=== PATIENT | male | born 1990 | race Caucasian/White ===

== ENCOUNTER 2016-09-27 20:04 | Emergency (ER) | payer MEDICAID, OTHER ==
[~2016-09-27] VITALS: Ht 170.2 cm; Wt 57.0 kg
[2016-09-27 20:18] VITALS: Ht 170.2 cm; Wt 57.0 kg
[2016-09-27] MEDS ORDERED: LIDOCAINE 1%/EPI 30 ML INJ INJ STA (21:32)
[2016-09-27] MEDS ORDERED: CLINDAMYCIN 300 MG INJ IM STA (21:32)
[2016-09-27] MEDS ORDERED: LIDOCAINE 2% (MDV) 20 ML INJ INJ STA (21:38)
[2016-09-27] MEDS ORDERED: ACET325T33 PO (22:43)
[2016-09-27] MEDS ORDERED: CLIN-73 PO (22:43)
[2016-09-27 22:58] VITALS: BP 110/64; PULSE 74; RESP 20; TEMP 99.4
--- NOTE | 2016-09-27 23:06 | ERD ---
ER Documentation Chief Complaint Date/Time DATE: 09/27/16 TIME: 22:49 Chief Complaint abscess/swelling anterior neck x 6 days HPI This is a 26-year-old male presenting to the emergency department complaining of an abscess on the right cervical neck that started 6 days ago. Patient states he has lesions throughout his body but he is noted 6 days ago and went to see a underwriting technician on Sunday at [facility] who has given him Bactrim DS, patient states that he is 2 days on the medication and the abscess on his right anterior neck has enlargement. Patient rates the pain around moderate in severity. He denies any fevers. He denies taking any medications for this. ROS All systems reviewed and are negative except as per history of present illness. Medications Home Meds Active Scripts Acetaminophen* (Tylenol*) 325 Mg Tablet, 2 TAB PO Q6 Y for PAIN AND OR ELEVATED TEMP, #30 TAB Prov:TWIN BARAHONA PA-C 09/27/16 Clindamycin Hcl* (Clindamycin Hcl*) 300 Mg Capsule, 300 MG PO TID for 10 Days, CAP Prov:TWIN BARAHONA PA-C 09/27/16 Allergies Allergies: Coded Allergies: No Known Drug Allergies (Verified Allergy, Unknown, 09/27/16) PMhx/Soc History of Surgery: No Anesthesia Reaction: No Hx Neurological Disorder: No Hx Respiratory Disorders: No Hx Cardiac Disorders: No Hx Psychiatric Problems: No Hx Miscellaneous Medical Probl: No Hx Alcohol Use: No Hx Substance Use: No Hx Tobacco Use: Yes Smoking Status: Light tobacco smoker Physical Exam Vitals Vital Signs Date Time Temp Pulse Resp B/P Pulse Ox O2 Delivery O2 Flow Rate FiO2 09/27/16 20:18 98.6 80 20 136/70 99 Physical Exam General: WD/WN, in no apparent distress, non-toxic appearing HENT: NC/AT Eyes: Conjunctiva normal Neck: Supple Pulm: Clear to auscultation, normal labored breathing; no wheezing/rales/ rhonchi heard CV: Good capillary refill GI: Non-distended, no guarding Back: No masses Ext: No clubbing, cyanosis, or edema Neuro: Moves on all fours Skin: ~[id number] erythematous fluctuate papule on right anterior neck Psych: Normal mood Results 24 hrs Current Medications Medications (Trade) Dose Ordered Sig/Mani Route PRN Reason Start Time Stop Time Status Last Admin Dose Admin Lidocaine/ Epinephrine (Xylocaine 1%/ Epi) 30 ml ONCE STAT INJ 09/27/16 21:32 09/27/16 21:33 DC Clindamycin Phosphate (Cleocin) 300 mg ONCE STAT IM 09/27/16 21:32 09/27/16 21:33 DC 09/27/16 22:00 Lidocaine (Xylocaine 2% (Mdv) 20 ml) 20 ml ONCE STAT INJ 09/27/16 21:38 09/27/16 21:39 DC Procedures/MDM This is a 26-year-old male presenting to the emergency department with a ~5cm x 5cm fluctuant abscess on the right anterior neck for 6 days. On examination patient's vital signs are stable, he is afebrile and airways are intact. There was no evidence of deep space infection, lymphangitis, necrotizing fasciitis. Abscess was drained, procedure below. Since patient has been on Bactrim DS for two days and his abscess has enlarged, I changed the antibiotic to Clindamycin, first dose was given in the ED. He is hemodynamically stable for discharge home. Discussed two day wound check to return here. Discussed to return sooner if condition worsens. Patient understood and agreed with this plan. PROCEDURE NOTE: Verbal consent was obtained Wound was irrigated with normal saline Wound was cleansed with Betadine 1cc Lidocaine 1% with epinephrine was used as a local anesthetic #11 blade scalpel was used for a single 0.25cm incision. Copious drainage of purulence occurred Wound was not packed with iodoform gauze strips due to the location of the abscess Sterile dressing was applied was consulted regarding this patient and agrees with management above. Departure Diagnosis: Primary Impression: Abscess Additional Impression: Cellulitis Condition: Stable Patient Instructions: Abscess, Incision And Drainage, Cellulitis Additional Instructions: Follow up in 2 days in your clinic for wound check. Take all medicines as directed. Return to this facility if you are not improving as expected. TWIN BARAHONA PA-C September 27, 2016 22:59
== END 2016-09-27 22:59 | disposition home or self-care (01) ==
LOC: FTE 20:04
DX: L02.11 Cutaneous abscess of neck (principal); L03.221 Cellulitis of neck; F17.210 Nicotine dependence, cigarettes, uncomplicated
CPT/HCPCS: 10060; 96372; Z7502; Z7610